=== PATIENT | female | born 1970 | race Caucasian/White ===

== ENCOUNTER 2019-03-18 07:42 | Day surgery (SDC) | payer OTHER ==
[2019-03-18] MEDS ORDERED: PROPOFOL 40 ML (11:57)
[2019-03-18] MEDS ORDERED: LIDOCAINE 100 MG SYRINGE (11:57)
== END 2019-03-18 16:17 | disposition home or self-care (01) ==
LOC: GIL 07:42
DX: Z12.11 Encounter for screening for malignant neoplasm of colon (principal); D12.3 Benign neoplasm of transverse colon; K29.50 Unspecified chronic gastritis without bleeding; Q27.33 Arteriovenous malformation of digestive system vessel; I10 Essential (primary) hypertension
CPT/HCPCS: 43239; 88305; 88312